=== PATIENT | male | born 1955 | race Caucasian/White ===

== ENCOUNTER 2021-07-18 00:16 | Emergency (ER) | payer MEDICARE ==
--- NOTE | 2021-07-18 00:35 | XR ---
EXAMINATION TYPE: XR chest 1V DATE OF EXAM: 07/18/2021 COMPARISON: 2011 HISTORY: Altered mental status TECHNIQUE: Single view FINDINGS: There is coarsening of the pulmonary interstitial markings. There is no definite heart fail ure. Costophrenic angles are clear. Bony thorax is intact. IMPRESSION: There is coarse interstitial density in the lungs which is new compared to last exam. Thi s could be some minimal interstitial pneumonia or fibrosis.
--- NOTE | 2021-07-18 00:36 | CT ---
EXAMINATION TYPE: CT brain wo con for TPA DATE OF EXAM: 07/18/2021 COMPARISON: None HISTORY: AMS CT DLP: mGycm Automated exposure control for dose reduction was used. Ventricles have normal size. There is no mass effect nor midline shift. There is no sign of intracran ial hemorrhage. Calvarium is intact. Skull base is intact. There is normal aeration of the mastoid si nuses. IMPRESSION: Negative unenhanced head CT scan.
[2021-07-18 00:46] LABS: Glucose,Whole Blood 106 mg/dL (75-99)
[2021-07-18 00:46] LABS: Basophils # (A) 0.1 k/uL (0-0.2); Basophils % (A) 1 %; Eosinophils # (A) 0.3 k/uL (0-0.7); Eosinophils % (A) 3 %; HCT 42.2 % (39.0-53.0); HGB 14.3 gm/dL (13.0-17.5); Lymphocytes # (A) 4.4 k/uL (1.0-4.8); Lymphocytes % (A) 43 %; MCH 31.5 pg (25.0-35.0); MCHC 33.7 g/dL (31.0-37.0); MCV 93.4 fL (80.0-100.0); Mean Platelet Volume 7.8; Monocytes # (A) 0.6 k/uL (0-1.0); Monocytes % (A) 6 %; Neutrophils # (A) 4.6 k/uL (1.3-7.7); Neutrophils % (A) 45 %; Platelet Count 224 k/uL (150-450); RBC 4.52 m/uL (4.30-5.90); RDW 13.3 % (11.5-15.5); WBC 10.2 k/uL (3.8-10.6)
[2021-07-18] MEDS ORDERED: ALTEPLASE BOLUS FOR STROKE 7 MG in EMPTY SYRINGE 1 SYR IV STA (00:50)
[2021-07-18] MEDS ORDERED: ALTEPLASE 60 MG in EMPTY BAG 1 BAG IV STA (00:50)
--- NOTE | 2021-07-18 00:54 | ED ---
Neuro HPI - General Stated Complaint: Stroke Time Seen by Provider: 07/18/21 00:18 Source: patient, EMS Mode of arrival: EMS Limitations: altered mental status - History of Present Illness Is the patient presenting with stroke symptoms?: Yes Last Known Well Date: 07/17/21 Last Known Well Time: 22:00 -: hour(s) Initial Comments: 's patient is a 66-year-old man brought by ambulance to be evaluated for right- sided weakness and difficulty with speech. Most of the history is from the patient's . She states that they had gone to bed a little after 10 PM. They have been watching television. He had asked her if the television was too loud, and he turned it down. She states that she closed her eyes for what seemed like a few minutes and then the patient had a coughing spell and was sitting up. She noted that he was not able to move his right side and he could not speak. She called the ambulance and he was brought here. On arrival, based on the EMS report, a code stroke was activated and the patient did go directly to computed tomography scan. The patient is not able to give any history, due to aphasia. Location: speech, right arm, right leg History of same: No Place: home Severity: severe Quality: constant Improves With: none Worsens With: none On Anticoagulants: Yes (Plavix) Context: sudden onset Associated Symptoms: denies other symptoms - Related Data Allergies/Adverse Reactions: Allergies Allergy/AdvReac Type Severity Reaction Status Date / Time Unable to Assess Allergy Verified 07/18/21 00:24 Review of Systems ROS Statement: Those systems with pertinent positive or pertinent negative responses have been documented in the HPI. ROS Other: All systems not noted in ROS Statement are negative. Limitations: ROS unobtainable due to patients medical condition General Exam Limitations: no limitations General appearance: alert, other Head exam: Present: atraumatic, normocephalic Eye exam: Present: PERRL. Absent: EOMI, scleral icterus, conjunctival injection, nystagmus ENT exam: Present: normal oropharynx Neck exam: Present: normal inspection, full ROM. Absent: tenderness, meningismus Respiratory exam: Present: normal lung sounds bilaterally. Absent: respiratory distress, wheezes, rales, rhonchi, stridor Cardiovascular Exam: Present: regular rate, normal rhythm, normal heart sounds. Absent: systolic murmur, diastolic murmur, rubs, gallop GI/Abdominal exam: Present: soft. Absent: distended, tenderness, guarding, rebound, rigid Extremities exam: Present: normal inspection, normal capillary refill. Absent: pedal edema, calf tenderness Back exam: Present: normal inspection Neurological exam: Present: alert, motor sensory deficit. Absent: oriented X3 (Unable to assess due to aphasia), CN II-XII intact Expanded Neurological exam: Present: expressive aphasia, protecting the airway Speech: Present: expressive aphasia Cranial nerves: EOM's Intact: Abnormal Right, Tongue Deviation: Abnormal Left, Facial Palsy with Forehead Movement: Abnormal Right Upper motor neuron: [place] Neglect: Abnormal Right Motor strength exam: RUE: 2/1, LUE: 5, RLE: 2/1, LLE: 5 Eye Response: (4) open spontaneously Motor Response: (6) obeys commands Verbal Response: (1) no verbal response Skin exam: Present: warm, dry, intact, normal color. Absent: rash Stroke MDM - Lab Data Result diagrams: 07/18/21 00:33 07/18/21 00:33 Lab Results 07/18/21 07/18/21 07/18/21 Range/Units 00:33 00:33 00:33 WBC 10.2 (3.8-10.6) k/uL RBC 4.52 (4.30-5.90) m/uL Hgb 14.3 (13.0-17.5) gm/dL Hct 42.2 (39.0-53.0) % MCV 93.4 (80.0-100.0) fL MCH 31.5 (25.0-35.0) pg MCHC 33.7 (31.0-37.0) g/dL RDW 13.3 (11.5-15.5) % Plt Count 224 (150-450) k/uL MPV 7.8 Neutrophils % 45 % Lymphocytes % 43 % Monocytes % 6 % Eosinophils % 3 % Basophils % 1 % Neutrophils # 4.6 (1.3-7.7) k/uL Lymphocytes # 4.4 (1.0-4.8) k/uL Monocytes # 0.6 (0-1.0) k/uL Eosinophils # 0.3 (0-0.7) k/uL Basophils # 0.1 (0-0.2) k/uL PT 11.2 (9.0-12.0) sec INR 1.1 (<1.2) APTT 22.9 (22.0-30.0) sec Sodium 135 L (137-145) mmol/L Potassium 4.1 (3.5-5.1) mmol/L Chloride 104 (98-107) mmol/L Carbon Dioxide 24 (22-30) mmol/L Anion Gap 7 mmol/L BUN 18 (9-20) mg/dL Creatinine 0.88 (0.66-1.25) mg/dL Est GFR (CKD-EPI)AfAm >90 (>60 ml/min/1.73 sqM) Est GFR (CKD-EPI)NonAf >90 (>60 ml/min/1.73 sqM) Glucose 98 (74-99) mg/dL POC Glucose (mg/dL) (75-99) mg/dL POC Glu Stitchdown Toe Former ID Calcium 8.3 L (8.4-10.2) mg/dL Total Bilirubin 0.2 (0.2-1.3) mg/dL AST 23 (17-59) U/L ALT 12 (4-49) U/L Alkaline Phosphatase 60 (38-126) U/L Troponin I (0.000-0.034) ng/mL Total Protein 6.2 L (6.3-8.2) g/dL Albumin 3.0 L (3.5-5.0) g/dL 07/18/21 07/18/21 Range/Units 00:33 00:44 WBC (3.8-10.6) k/uL RBC (4.30-5.90) m/uL Hgb (13.0-17.5) gm/dL Hct (39.0-53.0) % MCV (80.0-100.0) fL MCH (25.0-35.0) pg MCHC (31.0-37.0) g/dL RDW (11.5-15.5) % Plt Count (150-450) k/uL MPV Neutrophils % % Lymphocytes % % Monocytes % % Eosinophils % % Basophils % % Neutrophils # (1.3-7.7) k/uL Lymphocytes # (1.0-4.8) k/uL Monocytes # (0-1.0) k/uL Eosinophils # (0-0.7) k/uL Basophils # (0-0.2) k/uL PT (9.0-12.0) sec INR (<1.2) APTT (22.0-30.0) sec Sodium (137-145) mmol/L Potassium (3.5-5.1) mmol/L Chloride (98-107) mmol/L Carbon Dioxide (22-30) mmol/L Anion Gap mmol/L BUN (9-20) mg/dL Creatinine (0.66-1.25) mg/dL Est GFR (CKD-EPI)AfAm (>60 ml/min/1.73 sqM) Est GFR (CKD-EPI)NonAf (>60 ml/min/1.73 sqM) Glucose (74-99) mg/dL POC Glucose (mg/dL) 106 H (75-99) mg/dL POC Glu Stitchdown Toe Former ID Maria Ines, Rick Calcium (8.4-10.2) mg/dL Total Bilirubin (0.2-1.3) mg/dL AST (17-59) U/L ALT (4-49) U/L Alkaline Phosphatase (38-126) U/L Troponin I <0.012 (0.000-0.034) ng/mL Total Protein (6.3-8.2) g/dL Albumin (3.5-5.0) g/dL Past Medical History Past Medical History: Unable to Obtain History of Any Multi-Drug Resistant Organisms: Unobtainable Past Surgical History: Unable to Obtain Past Psychological History: Unable to Obtain Smoking Status: Unknown if ever smoked Past Alcohol Use History: Unable to Obtain Past Drug Use History: Unable to Obtain Course Vital Signs 07/18/21 07/18/21 07/18/21 00:20 00:35 00:50 Temperature 97.5 F L 97.5 F L Pulse Rate 48 L 49 L 55 L Respiratory 16 16 18 Rate Blood Pressure 114/76 115/75 113/81 O2 Sat by Pulse 98 98 99 Oximetry 07/18/21 07/18/21 01:05 EDT 01:20 EDT Temperature 98 F 97.6 F Pulse Rate 44 L 54 L Respiratory 18 18 Rate Blood Pressure 126/83 128/83 O2 Sat by Pulse 99 99 Oximetry - Reevaluation(s) Reevaluation #1: 07/18/21 00:50 I have discussed the case with Dr. Dover on the stroke team, who recommended TPA for this patient and then transferred to [facility], discussed the case with the patient's , who after discussion of indications, risks and benefits requests that TPA be given, I discussed case with pharmacy and preparing TPA and entering orders. Critical Care Time Critical Care Time: Yes (40 minutes) Disposition Clinical Impression: Acute ischemic left MCA stroke Disposition: OTHER INSTITUTION NOT DEFINED Condition: Critical Is patient prescribed a controlled substance at d/c from ED?: No Referrals: Nonstaff,Physician [Primary Care Provider] - 1-2 days - Out of Hospital Transfer - Req. Specs Out of Hospital Transfer - Requested Specifics: Neurological ICU
[2021-07-18 00:55] LABS: INR 1.1 (<1.2); Partial Thromboplastin Time 22.9 sec (22.0-30.0); Prothrombin Time 11.2 sec (9.0-12.0)
--- NOTE | 2021-07-18 00:55 | CT ---
EXAMINATION TYPE: CT angio head neck DATE OF EXAM: 07/18/2021 COMPARISON: None HISTORY: stroke CT DLP: 1613.30 mGycm Automated exposure control for dose reduction was used. CONTRAST: Performed with IV Contrast, patient injected with 65 mL of Isovue 370. Images obtained from the aortic arch to the vertex of the brain with IV contrast. There are 3-D post processed images. There is normal branching pattern of the great vessels on the aortic arch. There is arterial flow in both vertebral arteries. There is arterial flow in the common internal and external carotid arteries bilaterally. There is wide patency of the carotid artery bifurcations. There is no evidence of caroti d or vertebral artery aneurysm or dissection. There is arterial flow in the [place]. There is evidence of complete occlusion of the proxim al left middle cerebral artery. There is no flow within any vessels seen in the left sylvian fissure. There is arterial flow in the anterior and posterior cerebral arteries. There is normal contrast opa cification of the venous sinuses. I see no intracranial aneurysm. There is no mass effect. IMPRESSION: Negative CT angiogram of the neck. There is thrombosis of the proximal left middle cerebral artery.
[2021-07-18 00:58] VITALS: RESP 18
[2021-07-18 01:19] LABS: ALT 12 U/L (4-49); AST 23 U/L (17-59); African American GFR (CKD) >90 (>60 ml/min/1.73 sqM); Alkaline Phosphatase 60 U/L (38-126); Anion Gap 7 mmol/L; Blood Urea Nitrogen 18 mg/dL (9-20); Calcium 8.3 mg/dL (8.4-10.2); Carbon Dioxide 24 mmol/L (22-30); Chloride 104 mmol/L (98-107); Glucose 98 mg/dL (74-99); Non-African American GFR(CKD) >90 (>60 ml/min/1.73 sqM); Potassium 4.1 mmol/L (3.5-5.1); Sodium 135 mmol/L (137-145); Total Bilirubin 0.2 mg/dL (0.2-1.3); Total Protein 6.2 g/dL (6.3-8.2)
[2021-07-18 01:35] VITALS: BP 128/83; PULSE 54; TEMP 97.6
[2021-07-18] MEDS ORDERED: SODIUM CHLORIDE 0.9% 50 ML MINI-BAG IV ONE (01:52)
== END 2021-07-18 01:21 | disposition other institution (70) ==
LOC: EC 00:16
DX: I63.512 Cerebral infarction due to unspecified occlusion or stenosis of left middle cerebral artery (principal)
CPT/HCPCS: 36415; 93005; 80053; 84484; 85025; 85610; 85730; 71045; 70496; 70450; 70498; 99291; 96374; J2997; Q9967

== ENCOUNTER → 2022-12-23 | Outpatient (CLI) | payer MEDICARE ==
--- NOTE | 2022-12-23 15:00 | CTL ---
EXAMINATION TYPE: CT Low Dose Lung DATE OF EXAM ORDERED: 12/23/2022 HISTORY: Z87.891. Lung cancer screening CT DLP: 82.[address] CTDI: 2.2 mGy Automated exposure control for dose reduction was used. SCREENING VISIT: First screening visit. COMPARISON: Chest radiograph 07/18/2021 TECHNIQUE: Low dose computed tomography scan was performed through the chest at 1 mm thick sections a nd reconstructed images in multiple planes at 1 mm and [address] DIAGNOSTIC QUALITY: Satisfactory FINDINGS: LUNG NODULES: Spiculated nodular density within the left upper lobe measuring 1.3 cm. Scattered calcified granulomas. LUNGS: COPD: Severity: None Fibrosis: Severity: None Lymph nodes: None Other findings: None RIGHT PLEURAL SPACE: Effusion: None Calcification: None Thickening: None Pneumothorax: None LEFT PLEURAL SPACE: Effusion: None Calcification: None Thickening: None Pneumothorax: None HEART: Heart Size: Normal Coronary Calcification: Moderate Pericardial Effusion: None OTHER FINDINGS: Upper abdomen: Small hiatal hernia. Cholelithiasis. Bony thorax: None Supraclavicular region: None Other: Left chest wall loop recorder. Ascending thoracic aortic aneurysm measuring up to 4 cm. Descen ding thoracic aortic ectasia measuring up to 3.5 cm. IMPRESSION: 1. Spiculated 1.3 cm nodular density within the left upper lobe concerning for possible malignancy. 2. Ascending thoracic aortic aneurysm measuring up to 4 cm with descending thoracic aortic ectasia me asuring up to 3.[address] LUNG RAD AND CT CHEST RECOMMENDATION: Lung-Rad 4B or 4X Very Suspicious: Follow-up Chest CT with o r without contrast or PET/CT and/or tissue sampling. PET/CT may be used when there is a > 8 mm solid component. S Modifier (other clinically significant findings): S
== END | disposition home or self-care (01) ==
LOC: RADCTMAIN 13:55
PROVIDERS: ATTEND Internal Medicine
DX: Z12.2 Encounter for screening for malignant neoplasm of respiratory organs (principal); Z87.891 Personal history of nicotine dependence; J98.4 Other disorders of lung; I71.21 Aneurysm of the ascending aorta, without rupture; K80.20 Calculus of gallbladder without cholecystitis without obstruction
CPT/HCPCS: 71271

== ENCOUNTER → 2023-08-02 | Outpatient (CLI) | payer MEDICARE ==
--- NOTE | 2023-08-02 15:26 | XR ---
EXAMINATION TYPE: XR lumbar spine 3V, XR sacrum coccyx 3 views, XR knee complete 4 views LT, XR Hip Complete 2 views LT DATE OF EXAM: 08/02/2023 Comparison: None Clinical History: 68-year-old male [id number] Fall Findings: Lumbar spine: Degenerated levoconvex scoliosis. Advanced disc/endplate degenerative change towards the right side o f concavity at L3-L4. There is degenerative trace grade 1 retrolisthesis at L3-L4. Advanced hypertrop hic facet arthropathy mid to lower lumbar spine. Mild to moderate degenerative disc disease throughou t. Vertebral body heights are preserved. Sacrum and coccyx: Mild degenerative spurring at both hips. Coils related to prior mesh repair of the abdominal wall. Sm ooth delineation to the arcuate lines of the sacrum. No displaced or angulated anchor or coccygeal fr acture is seen. Mild degenerative spurring at the SI joints. Left hip: Mild degenerative spurring. Joint spaces relatively maintained. No acute fracture, subluxation, dislo cation. Left knee: No knee joint effusion. Mild infrapatellar anterior soft tissue swelling. No acute fracture, subluxat ion, or dislocation. Patella remains appropriately situated along the trochlear groove. Impression: 1. Lumbar spine: Degenerated levoconvex scoliosis of the lumbar spine. Degenerative trace grade 1 ret rolisthesis L3-L4. Advanced hypertrophic facet arthropathy mid to lower lumbar spine. No vertebral co mpression collapse. 2. Sacrum and coccyx: Mild degenerative change at the SI joints. No displaced or angulated tailbone f racture identified. 3. Left hip: Mild degenerative spurring. No acute osseous abnormality seen. 4. Left knee: Mild anterior infrapatellar soft tissue swelling. No acute osseous abnormality seen.
== END | disposition home or self-care (01) ==
LOC: RADXRMAIN 13:44
PROVIDERS: ATTEND Internal Medicine
DX: M43.16 Spondylolisthesis, lumbar region (principal); M47.816 Spondylosis without myelopathy or radiculopathy, lumbar region; E88.89 Other specified metabolic disorders; M53.3 Sacrococcygeal disorders, not elsewhere classified
CPT/HCPCS: 72100; 72220; 73502

== ENCOUNTER → 2023-08-14 | Outpatient (CLI) | payer MEDICARE ==
[2023-08-14 08:12] LABS: African American GFR (CKD) >90 (>60 ml/min/1.73 sqM); Blood Urea Nitrogen 14 mg/dL (9-20); Non-African American GFR(CKD) 84 (>60 ml/min/1.73 sqM)
--- NOTE | 2023-08-14 10:13 | CT ---
EXAMINATION TYPE: CT chest w con DATE OF EXAM: 08/14/2023 COMPARISON: 12/23/2022 HISTORY: Lung nodule CT DLP: 554 mGycm, Automated exposure control for dose reduction was used. CONTRAST: Performed injected with 100 mL of Isovue 300. TECHNIQUE: Axial images were obtained at 5 mm thick sections. Reconstructed images are reviewed on iPosition computer in the coronal plane. FINDINGS: Portion of the thyroid visualized is normal. There is a 2.8 cm linear irregular density at the left posterior upper lung field. Series 4 image 13. This may be changed compared to 12/23/2022 exam. Additional workup recommended. No enlarged mediastinal or hilar adenopathy is evident. There may be some mild prominence of the le ft suprahilar region. However, this area appears stable from comparison. Sample image series 4 image 17 Some benign-appearing punctate calcifications are within the left lung. Example image series 4 image 23. Additional punctate calcifications right mid lung. Series 4 image 33-34. Findings were present pr eviously. The ascending aorta diameter at the level of the main pulmonary artery is 3.9 cm. The main pulmonary artery diameter at the bifurcation is 2.[address] sections are obtained through the upper abdomen. Cholelithiasis. IMPRESSION: 1. Changing left apical irregular density. Additional workup is recommended. Consider PET/CT. 2. Stable punctate benign-appearing calcifications within the bilateral lung davies. 3. Cholelithiasis
== END | disposition home or self-care (01) ==
LOC: RADCTMAIN 07:34
PROVIDERS: ATTEND Internal Medicine Critical Care Medicine
DX: K80.20 Calculus of gallbladder without cholecystitis without obstruction (principal); R91.1 Solitary pulmonary nodule; R91.8 Other nonspecific abnormal finding of lung field
CPT/HCPCS: 82565; 84520; 71260; 36415; Q9967

== ENCOUNTER 2023-08-29 16:19 | Emergency (ER) | payer MEDICARE ==
[2023-08-29] MEDS ORDERED: DIPH,PERTUS(ACELL)TETVAC-LF 0.5 ML VIAL IM ONE (17:05)
--- NOTE | 2023-08-29 17:15 | ED ---
Upper Extremity HPI - General Chief Complaint: Extremity Injury, Upper Stated Complaint: left finger injury-nail sticking in finger Time Seen by Provider: 08/29/23 17:02 Source: patient, family, RN notes reviewed Mode of arrival: ambulatory Limitations: no limitations - History of Present Illness Initial Comments: Patient is a 68-year-old male presented ER with chief complaint of a nail in his finger. Patient states About an hour ago. Patient states he was kneeling up a piece of wood and the nail went through his finger. Patient is currently taking Coumadin. Patient denies any pain. Patient has full range of motion of digit. Tetanus vaccination is not up-to-date. - Related Data Previous Rx's Medication Instructions Recorded Cephalexin [Keflex] 500 mg PO Q6HR 7 Days #28 cap 08/29/23 Allergies Allergy/AdvReac Type Severity Reaction Status Date / Time Unable to Assess Allergy Verified 08/29/23 16:59 Review of Systems ROS Statement: Those systems with pertinent positive or pertinent negative responses have been documented in the HPI. ROS Other: All systems not noted in ROS Statement are negative. Past Medical History Past Medical History: Unable to Obtain History of Any Multi-Drug Resistant Organisms: Unobtainable Past Surgical History: Unable to Obtain Past Psychological History: Unable to Obtain Smoking Status: Unknown if ever smoked Past Alcohol Use History: Unable to Obtain Past Drug Use History: Unable to Obtain General Exam Limitations: no limitations General appearance: alert, in no apparent distress Head exam: Present: atraumatic, normocephalic, normal inspection Respiratory exam: Present: normal lung sounds bilaterally. Absent: respiratory distress, wheezes, rales, rhonchi, stridor Cardiovascular Exam: Present: regular rate, normal rhythm, normal heart sounds. Absent: systolic murmur, diastolic murmur, rubs, gallop, clicks Extremities exam: Present: other (Left fourth digit has a nail out of it. There is no active bleeding. Patient has full range of motion. Sensation intact. 2+ left radial pulse.) Neurological exam: Present: alert, oriented X3, CN II-XII intact Psychiatric exam: Present: normal affect, normal mood Course Vital Signs 08/29/23 08/29/23 16:57 18:03 Temperature 98 F 98 F Pulse Rate 50 L 76 Respiratory 18 18 Rate Blood Pressure 179/98 159/84 O2 Sat by Pulse 96 98 Oximetry Procedures - [place]ge[place] Body Removal Soft Tissue Consent Obtained: verbal consent Site: hand Foreign Body Suspected: Metal Foreign Body Removed: yes Foreign Body Removal Technique: Other Patient Tolerated Procedure: well, no complications Medical Decision Making - Medical Decision Making Was pt. sent in by a medical professional or institution (YUAN Farr, BIOCHEMISTRY SPECIALIST, urgent care, hospital, or skilled nursing...) When possible be specific @ -No Did you speak to anyone other than the patient for history (EMS, parent, family, police, friend...)? What history was obtained from this source @ - who provided some HPI Did you review nursing and triage notes (agree or disagree)? Why? @ -I reviewed and agree with nursing and triage notes Were old charts reviewed (outside hosp., previous admission, EMS record, old EKG , old radiological studies, urgent care reports/EKG's, skilled nursing records)? Report findings @ -No old charts were reviewed Differential Diagnosis (chest pain, altered mental status, abdominal pain women, abdominal pain men, vaginal bleeding, weakness, fever, dyspnea, syncope, headache, dizziness, GI bleed, back pain, seizure, CVA, palpatations, mental health, musculoskeletal)? @ -Foreign body, fracture, dislocation, laceration, abrasion, contusion EKG interpreted by me (3pts min.). @ -None X-rays interpreted by me (1pt min.). @ -None done CT interpreted by me (1pt min.). @ -None done U/S interpreted by me (1pt. min.). @ -None done What testing was considered but not performed or refused? (CT, X-rays, U/S, labs)? Why? @ -None What meds were considered but not given or refused? Why? @ -None Did you discuss the management of the patient with other professionals (professionals i.e. YUAN Farr, BIOCHEMISTRY SPECIALIST, lab, RT, psych nurse, hospital social worker, gem carver, teacher, armed custom protection officer, bottle caser)? Give summary @ -No Was smoking cessation discussed for >3mins.? @ -No Was critical care preformed (if so, how long)? @ -No Were there social determinants of health that impacted care today? How? (Homelessness, low income, unemployed, alcoholism, drug addiction, transportation, low edu. Level, literacy, decrease access to med. care, care home, rehab)? @ -No Was there de-escalation of care discussed even if they declined (Discuss DNR or withdrawal of care, Hospice)? DNR status @ -No What co-morbidities impacted this encounter? (DM, HTN, Smoking, COPD, CAD, Cancer, CVA, ARF, Chemo, Hep., AIDS, mental health diagnosis, sleep apnea, morbid obesity)? @ -None Was patient admitted / discharged? Hospital course, mention meds given and route, prescriptions, significant lab abnormalities, going to OR and other pertinent info. @ -Discharge. Patient is a 68-year-old male presented ER with chief complaint of a finger foreign body. Upon examination, patient's vital signs were stable. Physical exam was significant for a nail in the distal end of his left fourth digit. Patient was neurovascularly intact. Patient states his pain was very minimal if at all. X-rays obtained of his left finger was significant for fourth distal digit radiopaque nail which enters of bone but does not appear to cause a fracture of the bone. The foreign body was removed by pulling it out. Minimal bleeding after procedure. Patient received tetanus vaccination Patient will be prescribed Keflex for prophylactic infection treatment. I discussed with patient to complete full course of antibiotics. Return parameters were discussed. Patient be discharged in stable condition with follow-up to PCP. Patient expressed understanding and agreement with care plan. Undiagnosed new problem with uncertain prognosis? @ -No Drug Therapy requiring intensive monitoring for toxicity (Heparin, Nitro, Insulin, Cardizem)? @ -No Were any procedures done? @ -Yes Diagnosis/symptom? @ -Foreign body in finger Acute, or Chronic, or Acute on Chronic? @ -Acute Uncomplicated (without systemic symptoms) or Complicated (systemic symptoms)? @ -Uncomplicated Side effects of treatment? @ -No Exacerbation, Progression, or Severe Exacerbation? @ -No Poses a threat to life or bodily function? How? (Chest pain, [place], [place], pneumonia, PE, COPD, DKA, ARF, appy, cholecystitis, CVA, Diverticulitis, Homicidal, Suicidal, threat to staff... and all critical care pts) @ -No - Radiology Data Radiology results: report reviewed, image reviewed Disposition Clinical Impression: Foreign body of finger Disposition: HOME SELF-CARE Condition: Stable Additional Instructions: Please return to the Emergency Department if symptoms worsen or any other concerns. Is patient prescribed a controlled substance at d/c from ED?: No Referrals: Foster Celestin MD [Primary Care Provider] - 1-2 days Time of Disposition: 17:52
--- NOTE | 2023-08-29 17:32 | XR ---
EXAMINATION TYPE: XR hand complete LT DATE OF EXAM: 08/29/2023 5:09 PM CLINICAL INDICATION:Male, 68 years old with history of nail in finger; [facility] COMPARISON: None TECHNIQUE: XR hand complete LT Frontal, lateral and oblique views were obtained. FINDINGS: Normal alignment of the visualized joints. No acute osseous pathology is identified. Mild soft tissue swelling. Radiopaque foreign body entering the fourth digit and entering the bone. The fr acture line identified. IMPRESSION: Fourth digit distal aspect radiopaque nail which enters the bone but does not appear to cause a fract ure of the bone..
[2023-08-29 17:42] VITALS: RESP 18; TEMP 98
[2023-08-29 18:05] VITALS: BP 159/84; PULSE 76
== END 2023-08-29 19:34 | disposition home or self-care (01) ==
LOC: EC 16:19
DX: S60.455A Superficial foreign body of left ring finger, initial encounter (principal); Z23 Encounter for immunization; W45.8XXA Other foreign body or object entering through skin, initial encounter
CPT/HCPCS: 10120; 90471; 90715; 99283

== ENCOUNTER → 2024-08-12 | Outpatient (CLI) | payer MEDICARE ==
[2024-08-12 09:38] LABS: African American GFR (CKD) 84 (>60 ml/min/1.73 sqM); Blood Urea Nitrogen 15 mg/dL (9-20); Non-African American GFR(CKD) 73 (>60 ml/min/1.73 sqM)
--- NOTE | 2024-08-12 10:44 | CT ---
EXAMINATION TYPE: CT chest w con CT DLP: 379.40 mGycm, Automated exposure control for dose reduction was used. DATE OF EXAM: 08/12/2024 10:34 AM COMPARISON: CT chest 08/14/2023, CT low-dose lung 12/23/2022 CLINICAL INDICATION:Male, 69 years old with history of R91.1 SPN; PHH, LUNG NODULE TECHNIQUE: Multiple axial images were obtained through the chest following the administration of 100 cc of Isovue 300. . Coronal and sagittal reformats reviewed. FINDINGS: LUNGS/ PLEURA: No pleural effusion or pneumothorax. Minimal bilateral lower lobe dependent subsegment al atelectasis. Stable linear scarring within the right middle lobe. Slight enlargement of irregular opacity within the posterior aspect of the left upper lobe measuring up to 3.1 cm, and previously jayashree sured up to 2.8 cm (series 4, image 11). Scattered small calcified granulomas redemonstrated. AIRWAY: Patent and unremarkable.. HEART: Size within normal limits.No pericardial effusion. MEDIASTINUM: No evidence of adenopathy. VASCULATURE: Stable ectasia of the ascending thoracic aorta measuring up to 3.9 cm. Stable ectasia o f the descending thoracic aorta measures 3.5 cm. Minimal atherosclerotic calcification of the aorta a nd its branches. MUSCULOSKELETAL: Mild disc degeneration changes are present throughout the thoracolumbar spine. No ac [place] osseous abnormality. SOFT TISSUES/LYMPH NODES: Left anterior chest wall loop recorder redemonstrated. Normal bilateral paperhanger assistant ecomastia. LOWER NECK: No significant findings. UPPER ABDOMEN: Cholelithiasis. Small hiatal hernia. Partial visualization of infrarenal abdominal aor tic aneurysm measuring at least 3.1 cm. IMPRESSION: 1. Marginal increase in size of left apical irregular opacity from prior CT. May represent scarring v ersus malignancy. Further evaluation with PET CT recommended. 2. Stable ectasia of the ascending thoracic aorta measuring up to 3.9 cm. Stable ectasia descending t horacic aorta measuring up to 3.5 cm. Partial visualization of infrarenal abdominal aortic aneurysm m easuring at least 3.1 cm. 3. Sequelae of prior granulomatous disease. 4. Cholelithiasis. [facility], , 08/12/2024 10:42 AM
== END | disposition home or self-care (01) ==
LOC: RADCTMAIN 08:58
PROVIDERS: ATTEND Internal Medicine Critical Care Medicine
DX: I71.43 Infrarenal abdominal aortic aneurysm, without rupture (principal); K80.20 Calculus of gallbladder without cholecystitis without obstruction; R91.1 Solitary pulmonary nodule
CPT/HCPCS: 82565; 84520; 71260; 36415; Q9967

== ENCOUNTER → 2025-02-11 | Outpatient (CLI) | payer MEDICARE ==
[2025-02-11 10:25] LABS: African American GFR (CKD) 84 (>60 ml/min/1.73 sqM); Blood Urea Nitrogen 16 mg/dL (9-20); Non-African American GFR(CKD) 73 (>60 ml/min/1.73 sqM)
--- NOTE | 2025-02-15 16:51 | CT ---
EXAMINATION TYPE: CT chest w con DATE OF EXAM: 02/11/2025 11:08 AM COMPARISON: 08/12/2024 CLINICAL INDICATION: Male, 69 years old with history of R91.1 LUNG NODULE, Pulmonary nodule TECHNIQUE: Axial images were obtained at 5 mm thick sections. Reconstructed images are reviewed on [employer] computer in the coronal plane. Contrast used:80 mL of Isovue 300 with IV Contrast, (none if empty) Oral contrast used: (none if empty) CT DLP: 702 mGycm, Automated exposure control for dose reduction was used. FINDINGS: Portion of the thyroid visualized is normal. There is some streak opacity at the left apex. This extends to nodularity with spiculated margins wit h a diameter of 1.4 cm. Series 4 image 17. This was present on the comparison study of 08/12/2024. Add itional workup with PET CT is recommended. Punctate calcified granulomas in the periphery of the right lung. Series 4 image 22. An additional pu nctate calcifications in the anterior left midlung. Series 4 image 28. Calcifications in the anterior left upper lung field, series 10 image 22 No enlarged mediastinal or hilar adenopathy is evident. Some shotty lymphadenopathy in the pretrachea l space and aortopulmonic window. The ascending aorta diameter at the level of the main pulmonary ar josué is 3.8 cm. The main pulmonary artery diameter at the bifurcation is 2.7 cm. Vascular calcificat ions within the aorta. Moderate coronary artery calcifications present. Limited CT sections are obtained through the upper abdomen. Hepatic cysts present. IMPRESSION: 1. Suspicious spiculated density, present previously, with stranding extending towards the apex on th e left. Additional workup with PET CT recommended. [facility], , 02/15/2025 4:48 PM
== END | disposition home or self-care (01) ==
LOC: RADCTMAIN 09:41
PROVIDERS: ATTEND Internal Medicine Critical Care Medicine
DX: R91.1 Solitary pulmonary nodule (principal)
CPT/HCPCS: 82565; 84520; 71260; 36415; Q9967